=== PATIENT | female | born 1945 | race Caucasian/White ===

== ENCOUNTER → 2017-05-08 | Outpatient (CLI) | payer MEDICARE ==
[2017-05-08 19:09] LABS: ALT 29 U/L (9-52); AST 26 U/L (14-36); Alkaline Phosphatase 79 U/L (38-126); Anion Gap 8 mmol/L; Blood Urea Nitrogen 30 mg/dL (7-17); Calcium 9.6 mg/dL (8.4-10.2); Carbon Dioxide 28 mmol/L (22-30); Chloride 106 mmol/L (98-107); Glucose 88 mg/dL (74-99); Non-African American GFR(MDRD) 55 (>60 ml/min/1.73 sqM); Potassium 4.7 mmol/L (3.5-5.1); Sodium 142 mmol/L (137-145); Total Bilirubin 0.5 mg/dL (0.2-1.3); Total Protein 6.9 g/dL (6.3-8.2)
== END | disposition home or self-care (01) ==
LOC: MMGSC 08:34
PROVIDERS: ATTEND Family Medicine
DX: E78.5 Hyperlipidemia, unspecified (principal)
CPT/HCPCS: 36415; 80053; 80061; 82550

== ENCOUNTER → 2017-05-08 | Outpatient (CLI) | payer MEDICARE ==
[2017-05-08 19:05] LABS: Cholesterol 220 mg/dL (<200); Creatine Kinase 122 U/L (30-135); HDL Cholesterol 83 mg/dL (40-60)
== END | disposition home or self-care (01) ==
LOC: MMGSC 08:29
PROVIDERS: ATTEND Internal Medicine Interventional Cardiology
DX: E78.5 Hyperlipidemia, unspecified (principal)
CPT/HCPCS: 36415; 80061; 82550

== ENCOUNTER → 2018-09-26 | Outpatient (CLI) | payer MEDICARE ==
--- NOTE | 2018-09-26 13:39 | BD ---
EXAMINATION TYPE: Axial Bone Density DATE OF EXAM: 09/26/2018 COMPARISON: Exam of 2013 CLINICAL HISTORY: Postmenopausal female. Osteoporosis screening. Height: 5 ft 1 1/2 in Weight: 145 FRAX RISK QUESTIONS: Glucocorticoids (More than 3mos): YES (Ex: prednisone, prednisolone, methylprednisolone, dexamethasone, and hydrocortisone). Secondary Osteoporosis: 3. Menopause before 45: YES RISK FACTORS HISTORY OF: Active: YES Postmenopausal woman: TOTAL HYST AGE 40 Take estrogen and/or progesterone medications: TOOK HRT FROM 40- 70 Lost more than 2 inches in height since high school: YES MEDICATIONS: Additional Medications: PREVASTATIN Additional History: EXAM MEASUREMENTS: Bone mineral densitometry was performed using the [employer] System. Bone mineral density as measured about the Lumbar spine is: ----- L1-L4(G/cm2): 1.274 T Score Values are as follows: ----- L2: 0.3 ----- L3: 1.4 ----- L4: 0.9 ----- L1-L4: 0.8 Bone mineral density has: INCREASED 6.9 % since study of: 2013 Bone mineral density about the R hip (g/cm2): 0.935 Bone mineral density about the L hip (g/cm2): 0.876 T Score values are as follows: -----R Neck: -0.7 -----L Neck: -1.2 -----R Total: 1.2 -----L Total: 0.2 Bone mineral density has: INCREASED 1.4 % since study of: 2013 IMPRESSION: Osteopenia (T Score between -2.5 and -1). There is slightly increased risk of fracture and the patient may be considered for treatment. Re-Screen 2-5 years. NOTE: T-SCORE=SD OF THE YOUNG ADULT MEAN.
--- NOTE | 2018-10-03 07:44 | MM ---
Reason for exam: screening (asymptomatic). Last mammogram was performed 1 year and 4 months ago. History: Patient is postmenopausal. Family history of breast cancer in maternal aunt, premenopausal breast cancer in sister at age 50, and breast cancer in paternal aunt. Benign right US cyst aspiration ea add of the right breast, October 20, 2009. Benign right US cyst aspiration of the right breast, October 20, 2009. Excisional biopsy of the left breast, 1996. Took estrogen for 23 years. MG 3D Screening Mammo W/Cad Bilateral CC and MLO view(s) were taken. Prior study comparison: June 10, 2017, bilateral MG 3d screening mammo w/cad. April 23, 2016, bilateral MG 3d screening mammo w/cad. The breast tissue is heterogeneously dense. This may lower the sensitivity of mammography. Stable group of calcifications. No significant changes when compared with prior studies. ASSESSMENT: Negative, BI-RAD 1 RECOMMENDATION: Routine screening mammogram of both breasts in 1 year.
== END | disposition home or self-care (01) ==
LOC: RADMAMWWP 12:36
PROVIDERS: ATTEND Obstetrics & Gynecology
DX: Z12.31 Encounter for screening mammogram for malignant neoplasm of breast (principal); M85.852 Other specified disorders of bone density and structure, left thigh
CPT/HCPCS: 77063; 77067; 77080

== ENCOUNTER → 2020-02-09 | Outpatient (CLI) | payer MEDICARE ==
--- NOTE | 2020-02-11 09:30 | MM ---
Reason for exam: screening (asymptomatic). Last mammogram was performed 1 year and 4 months ago. History: Patient is postmenopausal. Family history of breast cancer in maternal aunt, premenopausal breast cancer in sister at age 50, and breast cancer in paternal aunt. Benign right US cyst aspiration ea add of the right breast, October 20, 2009. Benign right US cyst aspiration of the right breast, October 20, 2009. Excisional biopsy of the left breast, 1996. Taking estrogen for 23 years beginning at age 31. Physical Findings: A clinical breast exam by your physician is recommended on an annual basis and results should be correlated with mammographic findings. MG 3D Screening Mammo W/Cad Bilateral CC and MLO view(s) were taken. Prior study comparison: September 26, 2018, bilateral MG 3d screening mammo w/cad. June 10, 2017, bilateral MG 3d screening mammo w/cad. The breast tissue is heterogeneously dense. This may lower the sensitivity of mammography. Stable benign calcifications. There is no discrete abnormality. No significant changes when compared with prior studies. ASSESSMENT: Benign, BI-RAD 2 RECOMMENDATION: Routine screening mammogram of both breasts in 1 year.
== END | disposition home or self-care (01) ==
LOC: RADMAMWWP 09:36
PROVIDERS: ATTEND Obstetrics & Gynecology
DX: Z12.31 Encounter for screening mammogram for malignant neoplasm of breast (principal)
CPT/HCPCS: 77063; 77067

== ENCOUNTER → 2021-02-22 | Outpatient (CLI) | payer MEDICARE ==
--- NOTE | 2021-03-01 10:08 | MM ---
Reason for exam: screening (asymptomatic). Last mammogram was performed 1 year ago. History: Patient is postmenopausal. Family history of breast cancer in maternal aunt, premenopausal breast cancer in sister at age 50, and breast cancer in paternal aunt. Benign right US cyst aspiration ea add of the right breast, October 20, 2009. Benign right US cyst aspiration of the right breast, October 20, 2009. Excisional biopsy of the left breast, 1996. Taking estrogen for 23 years beginning at age 31. Physical Findings: A clinical breast exam by your physician is recommended on an annual basis and results should be correlated with mammographic findings. MG 3D Screening Mammo W/Cad Bilateral CC and MLO view(s) were taken. Prior study comparison: February 09, 2020, bilateral MG 3d screening mammo w/cad. September 26, 2018, bilateral MG 3d screening mammo w/cad. The breast tissue is heterogeneously dense. This may lower the sensitivity of mammography. Finding: There are 4 coarse heterogeneous, grouped/clustered calcifications in the right breast 2.4cm from the nipple. New finding since February 09, 2020 and September 26, 2018. ASSESSMENT: Incomplete: need additional imaging evaluation, BI-RAD 0 RECOMMENDATION: Special view mammogram of the right breast. [facility] will attempt to contact patient to return for supplemental views.
== END | disposition home or self-care (01) ==
LOC: RADMAMWWP 15:44
PROVIDERS: ATTEND Family Medicine
DX: Z12.31 Encounter for screening mammogram for malignant neoplasm of breast (principal); Z78.0 Asymptomatic menopausal state; Z80.3 Family history of malignant neoplasm of breast
CPT/HCPCS: 77063; 77067

== ENCOUNTER → 2021-03-15 | Outpatient (CLI) | payer MEDICARE ==
--- NOTE | 2021-03-17 09:28 | MM ---
Reason for exam: additional evaluation requested from abnormal screening. Last mammogram was performed 1 month ago. History: Patient is postmenopausal. Family history of breast cancer in maternal aunt, premenopausal breast cancer in sister at age 50, and breast cancer in paternal aunt. Benign right US cyst aspiration ea add of the right breast, October 20, 2009. Benign right US cyst aspiration of the right breast, October 20, 2009. Excisional biopsy of the left breast, 1996. Took estrogen beginning at age 40. Physical Findings: Nurse did not find any significant physical abnormalities on exam. MG 3D Work Up W/Cad RT CC and MLO view(s) were taken of the right breast. Prior study comparison: February 22, 2021, bilateral MG 3d screening mammo w/cad. February 09, 2020, bilateral MG 3d screening mammo w/cad. The breast tissue is heterogeneously dense. This may lower the sensitivity of mammography. Finding: There are suspicious, fine, round calcifications in the right breast 2cm from the nipple. These results were verbally communicated with the patient and result sheet given to the patient on 03/15/21. ASSESSMENT: Suspicious, BI-RAD 4 RECOMMENDATION: Stereotactic core biopsy of the right breast. Called Dr. Win's office with mammographic findings and has scheduled an appointment for the patient for 04/14/21 at 12:[address] Desir. Biopsy scheduled for 04/20/21 at 7:00. PRELIMINARY REPORT CALLED AND FAXED TO DR. DESIR ON 03/17/21.
== END | disposition home or self-care (01) ==
LOC: RADMAMWWP 13:23
PROVIDERS: ATTEND Family Medicine
DX: R92.1 Mammographic calcification found on diagnostic imaging of breast (principal); Z78.0 Asymptomatic menopausal state; Z80.3 Family history of malignant neoplasm of breast
CPT/HCPCS: 77065; G0279; 77061

== ENCOUNTER → 2021-04-14 | Outpatient (CLI) | payer MEDICARE ==
[2021-04-14 11:23] VITALS: BP 169/76; PULSE 64; RESP 16; TEMP 97.7
--- NOTE | 2021-04-14 11:46 | P.GSHP ---
History of Present Illness H&P Date: 04/14/21 Chief Complaint: microcalcifications of concern in the right breast Cailin is a 76 year old white female seen in consultation for Dr. Velia Reese regarding a mammographic abnormality in the right breast. She had a bilateral mammogram on 02-22-21 followed by a right breast diagnostic mammogram on 03-15-21. The patient does not feel any new lumps masses or nodules of concern in either breast. She is not complaining of any nipple discharge or skin changes. She had a left breast biopsy in 1996 which was benign. There was an open biopsy done in the operating room. She does not complain of any recent trauma or infection in the breast. Caffeine: energy drink in AM HEENT: Negative Chocolate: dark chocolate and several times a day Family history: father: brain cancer at 79 sister: breast and lung cancer at 66 brother: prostate cancer at 55 Hormonal History: menarche: 11 M2, breast fed: no, age at first live : 23 menopause: total hysterectomy at 40 bleeding and cramping BCP: 4 years hormones: premarin 30 years stopped about 6 years ago Surgical History: cataract surgery tonsil colonoscopy Medical History: HTN Social History: Nicotine: Negative Alcohol: One drink Drugs: Negative - Constitutional Constitutional: Reports sweats - EENT Comment: Flashes/floaters left eye Eyes: bilateral as per HPI Ears: deny: decreased hearing, tinnitus Ears, nose, mouth and throat: Denies headache, Denies sore throat - Breasts Breasts: bilateral: as per HPI - Cardiovascular Cardiovascular: Denies chest pain, Denies shortness of breath - Respiratory Respiratory: Reports cough - Gastrointestinal Gastrointestinal: Reports diarrhea, Denies abdominal pain, Denies nausea, Denies vomiting - Genitourinary (Female) Genitourinary: Denies dysuria, Denies hematuria - Menstruation Menstruation: Reports post hysterectomy - Musculoskeletal Comment: arthritis - Integumentary Integumentary: Denies pruritus, Denies rash - Neurological Neurological: Denies numbness, Denies weakness - Psychiatric Psychiatric: Denies anxiety, Denies depression - Endocrine Endocrine: Denies fatigue, Denies weight change - Hematologic/Lymphatic Comment: none - Allergic/Immunologic Allergic/Immunologic: Reports as per HPI, Reports seasonal allergies Past Medical History Past Medical History: Hyperlipidemia, Hypertension Additional Past Medical History / Comment(s): ARTHRITIS; VERTIGO; History of Any Multi-Drug Resistant Organisms: None Reported Past Surgical History: Breast Surgery, Hysterectomy, Tonsillectomy Additional Past Surgical History / Comment(s): COLONOSCOPY; left breast benign excisional bx. 1996; complete hysterectomy at age 40; cataract surgery LT 09/2020 & RT 10/2020; Past Anesthesia/Blood Transfusion Reactions: Motion Sickness Past Psychological History: No Psychological Hx Reported Smoking Status: Never smoker Past Alcohol Use History: Rare Past Drug Use History: None Reported - Past Family History Father Family Medical History: Cancer Additional Family Medical History / Comment(s): brain cancer Sister(s) Family Medical History: Cancer Additional Family Medical History / Comment(s): breast cancer at age 66 Brother(s) Family Medical History: Cancer Additional Family Medical History / Comment(s): prostate cancer at age 56 Medications and Allergies Home Medications Medication Instructions Recorded Confirmed Type Calcium Carbonate/Vitamin D3 1 each PO DAILY 01/16/16 04/14/21 History [Calcium 600 + Vit D 400 Tablet] Multivitamins, Thera [Multivitamin] 1 each PO DAILY 01/16/16 04/14/21 History Pravastatin Sodium [Pravachol] 10 mg PO HS 01/16/16 04/14/21 History lisinopriL 20 mg PO DAILY 04/11/21 04/14/21 History Allergies Allergy/AdvReac Type Severity Reaction Status Date / Time No Known Allergies Allergy Verified 04/14/21 11:14 Surgical - Exam Vital Signs Temp Pulse Resp BP Pulse Ox 97.7 F 64 16 169/76 100 04/14/21 11:15 04/14/21 11:15 04/14/21 11:15 04/14/21 11:15 04/14/21 11:15 BMI 26.3 - General well developed, well nourished, no distress - Eyes normal ocular movement - ENT no hearing loss, no congestion - Respiratory normal respiratory effort, clear to auscultation - Cardiovascular Rhythm: regular Heart Sounds: normal: S1, S2 - Abdomen Abdomen: soft, non tender, no guarding, no rigid, no rebound - Integumentary no rash, no abnormal pigmentation - Neurologic no disoriented, no combative - Musculoskeletal normal gait, normal posture - Psychiatric oriented to time, oriented to person, oriented to place, speech is normal, memory intact Breast Exam: BRA: 36C Specimen: Grade 2/3 ptosis bilaterally Palpation: Right breast: Multiple positional exam fibrocystic changes/dense breasts/no dominant masses or nodules of concern Right axilla: No adenopathy of concern Left breast: Multiple positional exam fibrocystic changes/dense breast/no dominant masses or nodules of concern Left axilla: No adenopathy of concern Results Mammogram reviewed with Dr. Amor from radiology Assessment and Plan Assessment: Impression: 1. Microcalcifications of concern right breast 2. Dense fibroglandular breast tissue/fibrocystic changes bilateral 3. Family history of cancer 4. Hypertension Plan: 1. Stereotactic core biopsy right breast Risk and benefits of the procedure discussed with the patient. Risks include but are not limited to bleeding, infection, reaction to the anesthetic. Additionally alternatives such as watchful waiting or open biopsy were discussed but not recommended. The patient understands and wishes to proceed. Her procedure is scheduled for next week.
== END ==
LOC: WWCWWP 11:02
PROVIDERS: ATTEND Surgery
DX: N60.11 Diffuse cystic mastopathy of right breast (principal); N60.12 Diffuse cystic mastopathy of left breast; I10 Essential (primary) hypertension; E78.5 Hyperlipidemia, unspecified; M19.90 Unspecified osteoarthritis, unspecified site; Z80.3 Family history of malignant neoplasm of breast; Z79.899 Other long term (current) drug therapy

== ENCOUNTER → 2021-04-20 | Day surgery (SDC) | payer MEDICARE ==
[2021-04-20 07:30] VITALS: RESP 16
[2021-04-20 08:37] VITALS: BP 150/77; PULSE 53; TEMP 98.1
--- NOTE | 2021-04-20 08:41 | P.PCN ---
Date of Procedure: 04/20/21 Preoperative Diagnosis: Microcalcifications of concern right breast Postoperative Diagnosis: Same Procedure(s) Performed: Stereotactic core biopsy right breast Anesthesia: local Surgeon: Ysabel Deisr Pathology: other (Breast tissue/microcalcifications noted in core biopsy specimen) Condition: stable Disposition: same day Indications for Procedure: Microcalcifications of concern right breast Operative Findings: Core biopsy revealed microcalcifications of concern Description of Procedure: The patient is a 76-year-old white female who on a routine screening mammogram was noted to have microcalcifications of concern in her right breast. The patient was seen in consultation and physical examination did not reveal any lesions of concern in the breast. She was recommended to undergo a right breast stereotactic core biopsy. Risk and benefits of the procedure were discussed with the patient. She understood and wished to proceed. Risks include but are not limited to bleeding, infection, reaction to the anesthetic. The alternatives such as watchful waiting or open biopsy were noted but not recommended. The patient was taken to the stereotactic core biopsy room. She was positioned prone on the lo-rad table. A science teacher film was obtained. A CC from above approach was utilized. The area of concern was seen. This was targeted. The breast was prepped using Betadine. 20 mL of 1% lidocaine were used to anesthetize the area of concern. A 9-gauge vacuum-assisted core rotating biopsy needle was driven to the correct coordinates. The needle was fired. Post fire films were obtained. The needle was noted to be in the correct location. 12 specimens were obtained. Radiograph of the specimen revealed that the area of concern had been sampled. Microcalcifications were noted in the specimen. A secure neelam Top-Hat clip was placed. Radiograph revealed the clip to be in the correct location. The patient tolerated the procedure in stable condition. The patient will follow-up with Dr. Rodriguez next week. The specimen was sent to pathology.
--- NOTE | 2021-04-20 09:10 | MM ---
EXAMINATION TYPE: MG stereo VAD BX RT DATE OF EXAM: 04/20/2021 COMPARISON: Prior mammogram March 15, 2021 and older studies. CLINICAL HISTORY: Abnormal mammogram TECHNIQUE: Stereotactic guided core biopsy of right breast with clip placement and follow-up two-view mammogram.. FINDINGS: The procedure of stereotactic guided core biopsy was explained to the patient. Benefits, a lternatives, and risks were discussed. An informed consent was then obtained. Case is reviewed. Suspicious calcifications are anterior and central. Pathway chosen was lateral appr [facility]. I performed the localization, then surgeon, Dr. Michael Cordero performed the remainder of the proce dure. A vacuum assisted biopsy gun was used to obtain multiple core samples. The patient tolerated the procedure well without any immediate complication. The patient was kept in the radiology department for short stay after the procedure and then discharged home in stable condi tion. Targeted calcifications are identified in specimen mammogram. Post biopsy mammogram shows the clip to appear in satisfactory position relative to the targeted area of concern on the preprocedure images. IMPRESSION: SUCCESSFUL, UNCOMPLICATED STEREOTACTIC GUIDED CORE BIOPSY OF AREA OF CONCERN IN THE RIGHT BREAST, FUL L PATHOLOGY RESULTS TO FOLLOW. Low index of suspicion noted at time of procedure.
== END ==
LOC: RADMAMWWP 07:06
PROVIDERS: ATTEND Surgery
DX: N62 Hypertrophy of breast (principal); N60.11 Diffuse cystic mastopathy of right breast; R92.8 Other abnormal and inconclusive findings on diagnostic imaging of breast; R92.0 Mammographic microcalcification found on diagnostic imaging of breast
CPT/HCPCS: 88305; 19081; A4648; J2001

== ENCOUNTER → 2021-04-27 | Outpatient (CLI) | payer MEDICARE ==
[2021-04-27 09:29] VITALS: BP 156/78; PULSE 58; RESP 18; TEMP 98.2
--- NOTE | 2021-04-27 10:01 | P.PN ---
Subjective Progress Note Date: 04/27/21 Principal diagnosis: Atypical lobular hyperplasia Cailin is a 76-year-old white female who underwent a right breast stereotactic core biopsy on 8520. Pathology revealed atypical lobular hyperplasia. She tolerated the procedure without difficulty. The radiograph was reviewed with Dr. Pickens from radiology. The area of concern which was sampled was small. The marking clip appears to be in the correct location. Surgical history: Cataracts surgery Tonsillectomy Colonoscopy Medical history: Hypertension Social history: Nicotine: Negative Alcohol: Occasional Drugs: Negative Objective - Vital Signs Vital signs: Vital Signs Temp 98.2 F 04/27/21 09:25 Pulse 58 L 04/27/21 09:25 Resp 18 04/27/21 09:25 BP 156/78 04/27/21 09:25 Pulse Ox 100 04/27/21 09:25 Intake & Output 04/26/21 04/27/21 04/27/21 18:59 06:59 18:59 Weight 66.224 kg - Constitutional General appearance: Present: average body habitus - EENT Eyes: Present: EOMI ENT: Present: hearing grossly normal - Neck Neck: Present: normal ROM - Respiratory Respiratory: bilateral: CTA - Cardiovascular Rhythm: regular Heart sounds: normal: S1, S2 - Integumentary Integumentary Comment(s): Mild ecchymosis at biopsy site, no evidence of infection or hematoma Assessment and Plan Assessment: Impression: 1. Atypical lobular hyperplasia on stereotactic core biopsy of the right breast 2. Hypertension Plan: 1. Needle localization right breast excisional lumpectomy, possible onco plastic tissue transfer, we have discussed using the mastopexy incision and patient would prefer not to have this done Risk and benefits of the procedure discussed with the patient. Risks include but are not limited to bleeding, infection, reaction to the anesthetic. Additionally there is a risk that the area of concern would not be adequately sampled with this would be a malignancy that additional procedures were noted to be done. She understands and wishes to proceed. This was scheduled in the near future. Cc: Dr. Win
== END ==
LOC: WWCWWP 08:50
PROVIDERS: ATTEND Surgery
DX: N60.91 Unspecified benign mammary dysplasia of right breast (principal); I10 Essential (primary) hypertension

== ENCOUNTER 2021-06-15 07:21 | Day surgery (SDC) | payer MEDICARE ==
--- NOTE | 2021-06-13 17:23 | P.PN ---
Subjective Progress Note Date: 06/13/21 Principal diagnosis: Atypical lobular hyperplasia right breast stereotactic core biopsy Cailin is a 76 year old white female seen in consultation for Dr. Win regarding a mammographic abnormality in the right breast. She had a bilateral mammogram on 02-22-21 followed by a right breast diagnostic mammogram on 03-15-21. The patient did not feel any new lumps masses or nodules of concern in either breast. She was not complaining of any nipple discharge or skin changes. She had a left breast biopsy in 1996 which was benign. This was an open biopsy done in the operating room. She did not complain of any recent trauma or infection in the breast. She underwent a stereotactic core biopsy on 8520. Pathology revealed atypical lobular hyperplasia. He tolerated the procedure without difficulty. The marking clip appeared to be in the correct location. Caffeine: energy drink in AM HEENT: Negative Chocolate: dark chocolate and several times a day Family history: father: brain cancer at 79 sister: breast and lung cancer at 66 brother: prostate cancer at 55 Hormonal History: menarche: 11 M2, breast fed: no, age at first live : 23 menopause: total hysterectomy at 40 bleeding and cramping BCP: 4 years hormones: premarin 30 years stopped about 6 years ago Surgical History: cataract surgery tonsil colonoscopy Medical History: HTN Social History: Nicotine: Negative Alcohol: One drink Drugs: Negative - Constitutional Constitutional: Reports sweats - EENT Comment: Flashes/floaters left eye Eyes: bilateral as per HPI Ears: deny: decreased hearing, tinnitus Ears, nose, mouth and throat: Denies headache, Denies sore throat - Breasts Breasts: bilateral: as per HPI - Cardiovascular Cardiovascular: Denies chest pain, Denies shortness of breath - Respiratory Respiratory: Reports cough - Gastrointestinal Gastrointestinal: Reports diarrhea, Denies abdominal pain, Denies nausea, Denies vomiting - Genitourinary (Female) Genitourinary: Denies dysuria, Denies hematuria - Menstruation Menstruation: Reports post hysterectomy - Musculoskeletal Comment: arthritis - Integumentary Integumentary: Denies pruritus, Denies rash - Neurological Neurological: Denies numbness, Denies weakness - Psychiatric Psychiatric: Denies anxiety, Denies depression - Endocrine Endocrine: Denies fatigue, Denies weight change - Hematologic/Lymphatic Comment: none - Allergic/Immunologic Allergic/Immunologic: Reports as per HPI, Reports seasonal allergies Objective - Constitutional General appearance: Present: cooperative - EENT Eyes: Present: EOMI ENT: Present: hearing grossly normal - Neck Neck: Present: normal ROM - Respiratory Respiratory: bilateral: CTA - Cardiovascular Heart sounds: normal: S1, S2 - Integumentary Integumentary: Present: normal turgor - Psychiatric Psychiatric: Present: A&O x's 3, appropriate affect, intact judgment & insight - Additional findings Additional findings: Breast examination: Right breast: Multiple positional exam no dominant masses or nodules of concern Right axilla: No adenopathy concern Left breast: Multiple positional exam fibrocystic changes without dominant mass or nodules of concern Left axilla: No adenopathy of concern Assessment and Plan Assessment: Impression: 1. Atypical lobular hyperplasia on stereotactic core biopsy of the right breast 2. Hypertension Plan: 1. Needle localization right breast excisional lumpectomy, possible onco- plastic tissue transfer, we discussed using a mastopexy incision and the patient has declined Risk and benefits of the procedure discussed with the patient. Risks include but are not limited to bleeding, infection, reaction to the anesthetic. Additionally there is a risk that the area of concern would not be adequately sampled and that if this would be a malignancy that it additional procedures were needed to be done. She understands and wishes to proceed.
[2021-06-14 09:09] VITALS: BMI 26.2
[~2021-06-15 07:21] MED LIST: HEPARIN SODIUM,PORCINE/PF 5,000 UNIT/0.5 ML SYRINGE SQ PRN; Pre Op ABX Message 1 EACH MISC MISCELLANE ONE
[2021-06-15] MEDS ORDERED: ALPRAZolam 0.25 MG TAB ONE (07:46)
[2021-06-15] MEDS ORDERED: ALPRAZolam 0.25 MG TAB PO ONE (07:49)
[2021-06-15] MEDS ORDERED: LACTATED RINGERS 1,000 ML IV ONE (08:07)
[2021-06-15 09:09] VITALS: RESP 16
[2021-06-15] MEDS ORDERED: LIDOCAINE 1% INJ 10MG/ML (20 ML MDV) SQ ONE ×3 (09:15→12:00)
[2021-06-15] MEDS ORDERED: ONDANSETRON 4 MG/2 ML VIAL ONE (09:24)
[2021-06-15] MEDS ORDERED: ONDANSETRON 4 MG/2 ML VIAL IVP ONE ×2 (09:46→09:50)
[2021-06-15] MEDS ORDERED: DEXAMETHASONE SOD PHOSPHATE 4 MG/ML 1 ML VIAL IVP ONE (09:47)
[2021-06-15] MEDS ORDERED: LIDOCAINE 1% (10MG/ML) FOR IV START INTRADERMA PRN (09:50)
[2021-06-15] MEDS ORDERED: MIDAZOLAM 2 MG/2 ML VIAL IV PRN (09:50)
[2021-06-15] MEDS ORDERED: HYDROmorphone 0.5 MG/0.5 ML SYRINGE IVP PRN (09:50)
[2021-06-15] MEDS ORDERED: LACTATED RINGERS 1,000 ML IV SCH (09:50)
[2021-06-15] MEDS ORDERED: DEXAMETHASONE SOD PHOSPHATE 4 MG/ML 1 ML VIAL IV ONE (09:50)
[2021-06-15] MEDS ORDERED: fentaNYL (PF) 50 MCG/ML 2 ML AMP ONE (11:04)
[2021-06-15] MEDS ORDERED: MIDAZOLAM 2 MG/2 ML VIAL ONE (11:04)
[2021-06-15] MEDS ORDERED: PROPOFOL 10 MG/ML 20 ML VIAL IV ONE (11:04)
[2021-06-15] MEDS ORDERED: LIDOCAINE 1% INJ 10MG/ML (20 ML MDV) ONE (11:04)
--- NOTE | 2021-06-15 12:06 | P.OP ---
Date of Procedure: 06/15/21 Preoperative Diagnosis: Atypical lobular hyperplasia on core biopsy right breast Postoperative Diagnosis: same Procedure(s) Performed: needle Localization excisional lumpectomy right breast Anesthesia: BEREA Surgeon: Ysabel Desir Estimated Blood Loss (ml): 5 IV fluids (ml): 500 Condition: stable Disposition: same day Indications for Procedure: Core biopsy with atypical lobular hyperplasia right breast Operative Findings: Dense breast tissue Description of Procedure: Cailin underwent a core biopsy of the right breast which revealed atypical lobular hyperplasia. Needle localization and excisional biopsy was recommended. Needle ocalization was performed and the patient was brought to the operative suite. Following induction of anesthesia a circumareolar incision was made. This was carried down to the shaft of the needle. Surrounding tissue was excised. The tissue was painted for orientation. Titanium clips were placed in the cavity. Hemostasis was attained. Surgicel in powder form was placed. The deep tissues were closed using 3-0 Vicryl suture. The skin was closed using 4-0 Monocryl. The patient tolerated the procedure in stable condition.
--- NOTE | 2021-06-15 12:07 | P.DS ---
Providers Attending physician: Ysabel Desir Primary care physician: Nichole Win Plan - Discharge Summary Discharge Rx Participant: Yes New Discharge Prescriptions: No Action Pravastatin Sodium [Pravachol] 10 mg PO HS Multivitamins, Thera [Multivitamin] 1 each PO DAILY Calcium Carbonate/Vitamin D3 [Calcium 600 + Vit D 400 Tablet] 1 each PO DAILY lisinopriL 20 mg PO DAILY Acetaminophen [Tylenol Arthritis] 1,300 mg PO DIRECTED PRN PRN Reason: Pain Discharge Medication List Calcium Carbonate/Vitamin D3 [Calcium 600 + Vit D 400 Tablet] 1 each PO DAILY 01/16/16 [History] Multivitamins, Thera [Multivitamin] 1 each PO DAILY 01/16/16 [History] Pravastatin Sodium [Pravachol] 10 mg PO HS 01/16/16 [History] lisinopriL 20 mg PO DAILY 04/11/21 [History] Acetaminophen [Tylenol Arthritis] 1,300 mg PO DIRECTED PRN 06/14/21 [History] Follow up Appointment(s)/Referral(s): Ysabel Desir MD [STAFF PHYSICIAN] - 06/23/21 3:20 pm Activity/Diet/Wound Care/Special Instructions: Do not drive today May shower after 48 hours Wear bra at all times Discharge Disposition: HOME SELF-CARE
[2021-06-15 12:31] VITALS: TEMP 97.9
[2021-06-15 13:22] VITALS: BP 184/83; PULSE 57
--- NOTE | 2021-06-15 18:44 | MM ---
EXAMINATION TYPE: MG pre op needle loc RT, MG surgical specimen RT DATE OF EXAM: 06/15/2021 COMPARISON: 04/20/2021 and 03/15/2021 CLINICAL HISTORY: 76-year-old female with biopsy-proven high risk lesion, ALH. Referred for needle lo calization for surgical excision. TECHNIQUE: Needle localization with wire placement and surgical excision of area of concern in the ri t breast. FINDINGS: The procedure of needle localization with wire placement and than surgical excision was exp lained to the patient. Benefits, alternatives, and risks were discussed. An informed consent was th en obtained. The shortest pathway for procedure was chosen. Shortest pathway was a superior approach. The overlyi ng skin was prepped and draped in usual sterile fashion. Lidocaine was used as anesthetic into the s kin and subcutaneous tissue up to the level of area of concern. A 5 cm Kopan needle was used. It was placed via a superior approach under mammographic guidance. Subsequent 90 degrees mammogram show th e needle to be in satisfactory position relative to the targeted area. At this point, wire was place d and the needle was withdrawn. The wire was fixed to patient's skin. Images were marked for surgeo n. The patient tolerated the procedure well without any immediate complication. The patient was kept in the radiology department for short stay after the procedure and then taken to surgery for surgical e xcision. Targeted clip and wire are identified in specimen mammogram. The patient was kept in [facility]ospi jeri for short stay after the procedure and then discharged home in stable condition. IMPRESSION: Successful, uncomplicated needle localization with wire placement and surgical excision o f biopsy-proven site of right breast ALH. We note that all of the calcifications were removed during the biopsy sampling. Full pathology results to follow.
== END 2021-06-15 13:46 | disposition home or self-care (01) ==
LOC: OR 07:21
PROVIDERS: ATTEND Surgery
DX: N60.91 Unspecified benign mammary dysplasia of right breast (principal); E78.5 Hyperlipidemia, unspecified; I10 Essential (primary) hypertension; M19.90 Unspecified osteoarthritis, unspecified site; Z98.49 Cataract extraction status, unspecified eye; Z97.2 Presence of dental prosthetic device (complete) (partial); Z90.710 Acquired absence of both cervix and uterus; Z80.1 Family history of malignant neoplasm of trachea, bronchus and lung; Z80.3 Family history of malignant neoplasm of breast; Z80.42 Family history of malignant neoplasm of prostate; Z80.8 Family history of malignant neoplasm of other organs or systems; Z98.890 Other specified postprocedural states; Z79.899 Other long term (current) drug therapy
CPT/HCPCS: 19301; 88307; 76098; 19281; C1819; J2250; J1100; J2405; J2001; J3010; J2704; J1644

== ENCOUNTER → 2021-06-23 | Outpatient (CLI) | payer MEDICARE ==
[2021-06-23 15:32] VITALS: BP 148/73; PULSE 56; RESP 12; TEMP 98
--- NOTE | 2021-06-23 16:02 | P.PN ---
Progress Note - Text Progress Note Date: 06/23/21 Cailin is a 76 year old white female status post a right breast biopsy on 06-15-21. She tolerated the procedure without difficulty. Pathology was benign. Revealed fibrocystic changes with apocrine metaplasia, columnar cell change, focal usual ductal hyperplasia and sclerosing adenosis. Radiographic correlation was performed in the area of concern was removed. Physical exam: Incision clean and dry mild ecchymosis Plan: 1. right breast mammogram in 6 months with exam at that time CC: Dr. Win
== END ==
LOC: WWCWWP 15:08
PROVIDERS: ATTEND Surgery
DX: N60.11 Diffuse cystic mastopathy of right breast (principal); N60.81 Other benign mammary dysplasias of right breast; N62 Hypertrophy of breast; N60.21 Fibroadenosis of right breast

== ENCOUNTER → 2021-12-15 | Outpatient (CLI) | payer MEDICARE ==
--- NOTE | 2021-12-15 11:46 | MM ---
Reason for exam: follow-up at short interval from prior study. Last mammogram was performed 9 months ago. History: Patient is postmenopausal and has history of high-risk lesion on a previous biopsy at age 76. Family history of breast cancer in maternal aunt, premenopausal breast cancer in sister at age 50, and breast cancer in paternal aunt. Benign MG pre op needle loc RT of the right breast, June 15, 2021. Lumpectomy of the right breast, June 15, 2021. High risk MG stereo VAD BX RT of the right breast, April 20, 2021. Benign right US cyst aspiration ea add of the right breast, October 20, 2009. Benign right US cyst aspiration of the right breast, October 20, 2009. Excisional biopsy of the left breast, 1996. Took estrogen beginning at age 40. Physical Findings: A clinical breast exam by your physician is recommended on an annual basis and results should be correlated with mammographic findings. MG 3D Diag Mammo W/Cad RT CC and MLO view(s) were taken of the right breast. Prior study comparison: March 15, 2021, right breast MG 3d work up w/cad RT. February 22, 2021, bilateral MG 3d screening mammo w/cad. The breast tissue is heterogeneously dense. This may lower the sensitivity of mammography. Post surgical changes right breast. No significant changes when compared with prior studies. ASSESSMENT: Benign, BI-RAD 2 RECOMMENDATION: Return to routine screening mammogram schedule for both breasts. Back on schedule for February 2022.
== END | disposition home or self-care (01) ==
LOC: RADMAMWWP 10:14
PROVIDERS: ATTEND Surgery
DX: R92.8 Other abnormal and inconclusive findings on diagnostic imaging of breast (principal); Z80.3 Family history of malignant neoplasm of breast
CPT/HCPCS: 77065; G0279; 77061

== ENCOUNTER → 2022-02-27 | Outpatient (CLI) | payer MEDICARE ==
--- NOTE | 2022-02-27 10:19 | MM ---
Reason for Exam: Follow-up at short interval from prior study. Last screening mammogram was performed 12 month(s) ago. Patient History: Menarche at age 11. First Full-Term at age 24. Left ovary removed at age 40. Right ovary removed at age 40. Hysterectomy at age 40. Postmenopausal. Estrogen, from age 40 until age 61. 06/15/2021, Lumpectomy on the Right side. 1996, Excisional Biopsy on the Left side. 06/15/2021, Benign Core Biopsy on the right side. 04/20/2021, High risk Core Biopsy on the right side. 10/20/2009, Benign Cyst Aspiration on the right side. 10/20/2009, Benign Cyst Aspiration on the right side. Paternal aunt had breast cancer. Maternal aunt had breast cancer. Sister had breast cancer, age 50. Risk Values: Kaley 5 year model risk: 5.5%. NCI Lifetime model risk: 11.6%. Prior Study Comparison: 07/17/1996 Screening Mammogram, Unknown. 06/10/2017 Bilateral Screening Mammogram, [facility]. 09/26/2018 Bilateral Screening Mammogram, [facility]. 02/09/2020 Bilateral Screening Mammogram, [facility]. 02/22/2021 Bilateral Screening Mammogram, [facility]. 03/15/2021 Right Diagnostic Mammogram, [facility]. 12/15/2021 Right Diagnostic Mammogram, [facility]. Tissue Density: The breast tissue is heterogeneously dense. This may lower the sensitivity of mammography. Findings: Analyzed By CAD. Postsurgical change anterior right breast from previous excision for biopsy-proven ALH. A few scattered round and punctate calcifications on both sides are unchanged. No significant change from prior exams. Overall Assessment: Benign, BI-RAD 2 Management: Screening Mammogram of both breasts in 1 year. 1. A clinical breast exam by your physician is recommended on an annual basis and results should be correlated with mammographic findings. 2. Patient should continue monthly self breast exams. 3. This exam should not preclude additional follow-up of suspicious palpable abnormalities. Results were given to the patient verbally at the time of exam. Electronically signed and approved by: Alicia Pickesn M.D. Radiologist
== END | disposition home or self-care (01) ==
LOC: RADMAMWWP 09:28
PROVIDERS: ATTEND Surgery
DX: R92.1 Mammographic calcification found on diagnostic imaging of breast (principal); Z78.0 Asymptomatic menopausal state; Z80.3 Family history of malignant neoplasm of breast
CPT/HCPCS: 77066; G0279; 77062

== ENCOUNTER → 2022-03-08 | Outpatient (CLI) | payer MEDICARE ==
[2022-03-08 08:59] VITALS: BP 162/81; PULSE 62; RESP 16; TEMP 97.8
--- NOTE | 2022-03-08 09:08 | P.PN ---
Subjective Progress Note Date: 03/08/22 ATLH/LCIS right breast Cailin is a 76 year old white female seen in consultation for Dr. Win regarding a mammographic abnormality in the right breast. She had a bilateral mammogram on 02-22-21 followed by a right breast diagnostic mammogram on 03-15-21. The patient did not feel any new lumps masses or nodules of concern in either breast. She was not complaining of any nipple discharge or skin changes. She had a left breast biopsy in 1996 which was benign. This was an open biopsy done in the operating room. She did not complain of any recent trauma or infection in the breast. Patient underweent a right breast stero biopsy on 04-20-21 which showed atypical lobular hyperplasia. This led to a needle localization and lumpectomy on 05-19-21. This revealed ALH/LCIS. She had a repeat right breast mammogram on 12-15-21 which was benign BIRAD 2. The patient does not feel any new lumps masses or nodules of concern in either breast. The patient and [id number] underwent a bilateral mammogram. This revealed postsurgical changes in the right breast. Nothing was noted of concern in the left breast. The patient is recommended to undergo a bilateral mammogram in 1 year. Then mammograms are personally reviewed. Kaley Risk: 5 year risk: 10.5% vs. 2.2% lifetime risk: 21.2% vs. 4.7% Caffeine: energy drink in AM HEENT: Negative Chocolate: dark chocolate and several times a day Family history: father: brain cancer at 79 sister: breast and lung cancer at 66 brother: prostate cancer at 55 Hormonal History: menarche: 11 M2, breast fed: no, age at first live : 23 menopause: total hysterectomy at 40 bleeding and cramping BCP: 4 years hormones: premarin 30 years stopped about 6 years ago Surgical History: cataract surgery tonsil colonoscopy Medical History: HTN Social History: Nicotine: Negative Alcohol: One drink Drugs: Negative - Constitutional Constitutional: Reports sweats - EENT Comment: Flashes/floaters left eye Eyes: bilateral as per HPI Ears: deny: decreased hearing, tinnitus Ears, nose, mouth and throat: Denies headache, Denies sore throat - Breasts Breasts: bilateral: as per HPI - Cardiovascular Cardiovascular: Denies chest pain, Denies shortness of breath - Respiratory Respiratory: Reports cough - Gastrointestinal Gastrointestinal: Reports diarrhea, Denies abdominal pain, Denies nausea, Denies vomiting - Genitourinary (Female) Genitourinary: Denies dysuria, Denies hematuria - Menstruation Menstruation: Reports post hysterectomy - Musculoskeletal Comment: arthritis - Integumentary Integumentary: Denies pruritus, Denies rash - Neurological Neurological: Denies numbness, Denies weakness - Psychiatric Psychiatric: Denies anxiety, Denies depression - Endocrine Endocrine: Denies fatigue, Denies weight change - Hematologic/Lymphatic Comment: none - Allergic/Immunologic Allergic/Immunologic: Reports as per HPI, Reports seasonal allergies Objective - Vital Signs Vital signs: Vital Signs Temp 97.8 F 03/08/22 08:56 Pulse 62 03/08/22 08:56 Resp 16 03/08/22 08:56 BP 162/81 03/08/22 08:56 Pulse Ox 98 03/08/22 08:56 FiO2 Intake & Output 03/07/22 03/08/22 03/08/22 18:59 06:59 18:59 Weight 65.771 kg Assessment and Plan Assessment: Impression: Bilateral fibrocystic breast changes High risk lesion right breast atypical lobular hyperplasia/lobular carcinoma in situ on lumpectomy bilateral mammogram on 02-27-22 benign BIRAD 2 Plan: Bilateral mammogram in 1 year with physician exam at that time CC: Dr. Win
== END ==
LOC: WWCWWP 08:47
PROVIDERS: ATTEND Surgery
DX: N60.11 Diffuse cystic mastopathy of right breast (principal); N60.12 Diffuse cystic mastopathy of left breast; R92.8 Other abnormal and inconclusive findings on diagnostic imaging of breast; N64.89 Other specified disorders of breast; Z98.890 Other specified postprocedural states; I10 Essential (primary) hypertension

== ENCOUNTER → 2023-02-25 | Outpatient (CLI) | payer MEDICARE ==
--- NOTE | 2023-02-26 10:34 | MM ---
Reason for Exam: Additional evaluation requested from abnormal screening. Last screening mammogram was performed 12 month(s) ago. Patient History: Menarche at age 11. First Full-Term at age 24. Left ovary removed at age 40. Right ovary removed at age 40. Hysterectomy at age 40. Postmenopausal. Estrogen, from age 40 until age 61. 06/15/2021, Lumpectomy on the Right side. 1996, Excisional Biopsy on the Left side. 06/15/2021, Benign Core Biopsy on the right side. 04/20/2021, High risk Core Biopsy on the right side. 10/20/2009, Benign Cyst Aspiration on the right side. 10/20/2009, Benign Cyst Aspiration on the right side. Paternal aunt had breast cancer. Maternal aunt had breast cancer. Sister had breast cancer, age 50. Risk Values: Kaley 5 year model risk: 5.5%. NCI Lifetime model risk: 10.9%. Prior Study Comparison: 06/10/2017 Bilateral Screening Mammogram, [facility]. 09/26/2018 Bilateral Screening Mammogram, [facility]. 02/09/2020 Bilateral Screening Mammogram, [facility]. 02/22/2021 Bilateral Screening Mammogram, [facility]. 03/15/2021 Right Diagnostic Mammogram, [facility]. 12/15/2021 Right Diagnostic Mammogram, [facility]. 02/27/2022 Bilateral MG 3D diag mammo w/cad [facility], [facility]. Tissue Density: The breast tissue is heterogeneously dense. This may lower the sensitivity of mammography. Findings: Analyzed By CAD. Postoperative changes right breast. Scattered benign calcifications. No evidence for mass or new area of distortion. Overall Assessment: Benign, BI-RAD 2 Management: Diagnostic Mammogram of both breasts in 1 year. Results were given to the patient verbally at the time of exam. Patient should continue monthly self-breast exams. A clinical breast exam by your physician is recommended on an annual basis. This exam should not preclude additional follow-up of suspicious palpable abnormalities. Note on Kaley scores and lifetime risk: 1. A Kaley score greater than 3% is considered moderate risk. If this is the case, consider specialist referral to assess eligibility for a risk reducing agent. 2. If overall lifetime risk for the development of breast cancer is 20% or higher, the patient may qualify for future screening with alternating mammogram and breast MRI. Electronically signed and approved by: Ryne Amor M.D. Radiologis
== END | disposition home or self-care (01) ==
LOC: RADMAMWWP 08:46
PROVIDERS: ATTEND Surgery
DX: R92.8 Other abnormal and inconclusive findings on diagnostic imaging of breast (principal); Z78.0 Asymptomatic menopausal state; Z80.3 Family history of malignant neoplasm of breast; Z85.3 Personal history of malignant neoplasm of breast
CPT/HCPCS: 77066; G0279; 77062

== ENCOUNTER → 2024-03-02 | Outpatient (CLI) | payer MEDICARE ==
--- NOTE | 2024-03-02 14:03 | MM ---
Reason for Exam: Screening (asymptomatic). Last screening mammogram was performed 12 month(s) ago. Patient History: Menarche at age 11. First Full-Term at age 24. Left ovary removed at age 40. Right ovary removed at age 40. Hysterectomy at age 40. Postmenopausal. Estrogen, from age 40 until age 61. 06/15/2021, Lumpectomy on the Right side. 1996, Excisional Biopsy on the Left side. 06/15/2021, Benign Core Biopsy on the right side. 04/20/2021, High risk Core Biopsy on the right side. 10/20/2009, Benign Cyst Aspiration on the right side. 10/20/2009, Benign Cyst Aspiration on the right side. Paternal aunt had breast cancer. Maternal aunt had breast cancer. Sister had breast cancer, age 50. Risk Values: Kaley 5 year model risk: 5.5%. NCI Lifetime model risk: 10.2%. Prior Study Comparison: 12/15/2021 Right Diagnostic Mammogram, [facility]. 02/27/2022 Bilateral MG 3D diag mammo w/cad [facility], [facility]. 02/25/2023 Bilateral MG 3D diag mammo w/cad [facility], [facility]. Tissue Density: The breasts are heterogeneously dense, which may obscure small masses. Findings: Analyzed By CAD. Right breast surgical clips. Right breast: There is no suspicious group of microcalcifications or new suspicious mass. Left breast: There is no suspicious group of microcalcifications or new suspicious mass. Overall Assessment: Negative, BI-RAD 1 Management: Screening Mammogram of both breasts in [address] [facility] will attempt to contact patient to return for supplemental views and ultrasound if indicated. Patient should continue monthly self-breast exams. A clinical breast exam by your physician is recommended on an annual basis. This exam should not preclude additional follow-up of suspicious palpable abnormalities. Note on Kaley scores and lifetime risk: 1. A Kaley score greater than 3% is considered moderate risk. If this is the case, consider specialist referral to assess eligibility for a risk reducing agent. 2. If overall lifetime risk for the development of breast cancer is 20% or higher, the patient may qualify for future screening with alternating mammogram and breast MRI. Electronically signed and approved by: Praveen Cisneros DO
== END | disposition home or self-care (01) ==
LOC: RADMAMWWP 09:34
PROVIDERS: ATTEND Family Medicine
DX: Z12.31 Encounter for screening mammogram for malignant neoplasm of breast (principal); Z78.0 Asymptomatic menopausal state; Z80.3 Family history of malignant neoplasm of breast
CPT/HCPCS: 77063; 77067